=== PATIENT | female | born 1980 | race Caucasian/White ===

== ENCOUNTER 2016-06-24 06:33 | Day surgery (SDC) | payer OTHER ==
[~2016-06-24 06:33] MED LIST: ADDERALL 10 MG10 M1 PO; ALLEGRA180 MG PO; ALLERGY SHOTS; BIRTH CONTROL PILL PO; CARAFATE1 G/10 ML PO; CLARITIN10 M6 PO; CULTURELLE1 EAC1 PO; DAILY VITAMIN1 EAC5 PO; OMEPRAZOLE20 MG PO
[2016-06-26] MEDS ORDERED: LORTAB PO (09:57)
[2016-06-26] MEDS ORDERED: ZOFRAN4 M2 PO (14:01)
== END 2016-06-26 14:30 ==
LOC: SHSB 06:33 → ORW 08:46 → PACU 11:10 → OBGF 12:25
PROC: 0UT90ZZ Resection of Uterus, Open Approach (ICD-10-PCS; principal; 2016-06-24)
PROC: 0UTC0ZZ Resection of Cervix, Open Approach (ICD-10-PCS; 2016-06-24)
PROC: 0UT70ZZ Resection of Bilateral Fallopian Tubes, Open Approach (ICD-10-PCS; 2016-06-24)
PROC: 0T988ZZ Drainage of Bilateral Ureters, Via Natural or Artificial Opening Endoscopic (ICD-10-PCS; 2016-06-24)
DX: D25.1 Intramural leiomyoma of uterus (principal); D25.2 Subserosal leiomyoma of uterus; I73.00 Raynaud's syndrome without gangrene; J40 Bronchitis, not specified as acute or chronic; M35.00 Sjogren syndrome, unspecified; K64.4 Residual hemorrhoidal skin tags; Z79.899 Other long term (current) drug therapy; Z88.1 Allergy status to other antibiotic agents; Z91.030 Bee allergy status; Z98.890 Other specified postprocedural states
CPT/HCPCS: J1170; J1580; J1885; J2175; J2250; J2795; J3010; J7050; J7121; Q9967